=== PATIENT | male | born 1990 ===

== ENCOUNTER 2017-05-18 22:20 | Emergency (ER) | payer OTHER ==
[2017-05-18 22:42] VITALS: BP 141/95; PULSE 77; RESP 20; TEMP 97.9; O2SAT 98
[2017-05-18] MEDS ORDERED: Bacitracin 500 Units/gm Oint Foilpak UD ONE (23:31)
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
== END 2017-05-18 23:45 | disposition home or self-care (01) ==
LOC: C.ER 22:20
DX: S21.212A Laceration without foreign body of left back wall of thorax without penetration into thoracic cavity, initial encounter (principal); Y08.89XA Assault by other specified means, initial encounter; Y93.01 Activity, walking, marching and hiking; Y92.410 Unspecified street and highway as the place of occurrence of the external cause